=== PATIENT | male | born 1945 ===

== ENCOUNTER 2016-08-24 11:53 | Emergency (ER) | payer MEDICARE, MEDICAID ==
[2016-08-24 13:07] LABS: ALB/GLOB RATIO 1.1 (1.0-2.1); ALKALINE PHOSPHATASE 76 U/L (38-126); ALT/SGPT 23 U/L (21-72); AST/SGOT 27 U/L (17-59); BILIRUBIN,TOTAL 0.5 mg/dl (0.2-1.3); BLOOD UREA NITROGEN 19 mg/dl (9-20); CALCIUM 9.3 mg/dL (8.4-10.2); CARBON DIOXIDE 33 mmol/L (22-30); CHLORIDE 97 mmol/L (98-107); GFR AFRICAN-AMERICAN > 60; GLUCOSE,RANDOM 125 mg/dL (75-110); SODIUM 141 mmol/l (132-148); TOTAL PROTEIN 7.1 G/DL (6.3-8.2)
[2016-08-24 13:14] LABS: BASO # 0.1 K/uL (0.0-0.2); BASO % 0.7 % (0.0-2.0); EOS # 0.1 K/uL (0.0-0.7); EOS % 0.9 % (0.0-4.0); HEMATOCRIT 39.3 % (35.0-51.0); LYMPH # 1.9 K/uL (1.0-4.3); LYMPH % 24.5 % (20.0-40.0); MEAN CELL VOLUME 96.5 fl (80.0-94.0); MEAN CORPUSCULAR HEMOGLOBIN 31.5 pg (27.0-31.0); MEAN CORPUSCULAR HGB CONC 32.6 g/dL (33.0-37.0); MEAN PLATELET VOLUME 7.7 fl (7.2-11.7); MONO # 0.9 K/uL (0.0-0.8); MONO % 11.6 % (0.0-10.0); NEUT # 4.9 K/uL (1.8-7.0); NEUT % 62.3 % (50.0-75.0); RED CELL DISTRIBUTION WIDTH 14.7 % (11.5-14.5); WHITE BLOOD COUNT 7.8 K/uL (4.8-10.8)
--- NOTE | 2016-08-24 14:25 | RAD ---
HISTORY: CP COMPARISON: Comparison chest 10/27/2012. Comparison also made with the CT scan abdomen pelvis 07/22/2016 which imaged both lung bases. FINDINGS: LUNGS: Left lower lobe opacity may represent atelectasis and or infiltrate. . Exuberant subpleural fatty deposition is again noted. PLEURA: No significant pleural effusion identified, no pneumothorax apparent. CARDIOVASCULAR: Normal. OSSEOUS STRUCTURES: No significant abnormalities. VISUALIZED UPPER ABDOMEN: Normal. OTHER FINDINGS: None. IMPRESSION: Left lower lobe atelectasis and or infiltrate. Subpleural fatty deposition
--- NOTE | 2016-08-24 14:55 | ED PDOC ---
HPI: General Adult Time Seen by Provider: 08/24/16 12:10 Chief Complaint (Nursing): Chest Pain Chief Complaint (Provider): chest pain History Per: Patient History/Exam Limitations: no limitations Additional Complaint(s): 71yo male sent by his pain management doctor for chest pain and back pain. He denies nausea, vomit, diarrhea. States Hx of chronic back pain however this pain is different. +CAD w/ 2x stents and 3x MIs per patient. Cardiology: Alex PMD: David Against Medical Advice - AMA Patient Left Against Medical Advice: The patient declines admission to the hospital and wishes to leave the Emergency Department. This action is against my medical advice. This decision was made with informed refusal. The patient was told that admission to the hospital is necessary. Explanation of the reasons why were discussed. The risks of leaving were explained to the patient and include, but are not limited to, worsening of known or currently unknown conditions, permanent disability and from undiagnosed or untreated conditions. The patient has the capacity to make this informed decision and understands my explanation of the current medical problem and risks of leaving. The patient voluntarily accepts these risks and signed an AMA form documenting our conversation. The patient was given the opportunity to ask questions and reconsider. The patient was encouraged to return to the Emergency Department at any time for further care. Past Medical History Reviewed: Historical Data, Nursing Documentation, Vital Signs Vital Signs: Last Vital Signs Temp Pulse 105 H 08/24/16 15:36 Resp 16 08/24/16 15:06 BP 129/79 08/24/16 15:06 Pulse Ox 99 08/24/16 15:36 - Medical History PMH: CAD (with 2x stents and 3x MIs per patient) - Surgical History Surgical History: Coronary Stent (2x) - Family History Family History: States: Unknown Family Hx - Allergies Allergies/Adverse Reactions: Allergies Allergy/AdvReac Type Severity Reaction Status Date / Time No Known Allergies Allergy Verified 08/24/16 12:18 Review of Systems ROS Statement: Except As Marked, All Systems Reviewed And Found Negative Cardiovascular: Positive for: Chest Pain Gastrointestinal: Negative for: Nausea, Vomiting Musculoskeletal: Positive for: Back Pain Physical Exam - Reviewed Nursing Documentation Reviewed: Yes Vital Signs Reviewed: Yes - Physical Exam Appears: Positive for: Well, Non-toxic, No Acute Distress Head Exam: Positive for: ATRAUMATIC, NORMAL INSPECTION, NORMOCEPHALIC Skin: Positive for: Warm, Dry Eye Exam: Positive for: EOMI, PERRL Cardiovascular/Chest: Positive for: Regular Rate, Rhythm Respiratory: Positive for: Normal Breath Sounds. Negative for: Rales, Rhonchi, Wheezing Gastrointestinal/Abdominal: Positive for: Normal Exam, Soft. Negative for: Tenderness Extremity: Positive for: Normal ROM Neurologic/Psych: Positive for: Alert, Oriented (x3) - Laboratory Results Result Diagrams: 08/24/16 12:52 08/24/16 12:52 - ECG ECG: Positive for: Interpreted By Me, Viewed By Me ECG Rhythm: Positive for: Sinus Tachycardia, Nonspecific Changes Rate: 105 O2 Sat by Pulse Oximetry: 99 Pulse Ox Interpretation: Normal - Radiology X-Ray: Read By Radiologist (CXR) X-Ray Interpretation: Other (Left lower lobe atelectasis and or infiltrate. Subpleural fatty deposit) Medical Decision Making Medical Decision Making: Labs reviewed and are unremarkable. Troponin negative. CXR read as infiltrate vs atelectasis however patient denies fever malaise or coughing. Bloodwork and results were explained. Patient was advised to stay in the hospital for observation given history and symptoms. However he wants to leave against medical advice to go to his PMD at [facility]. We offered transfer at patient's request however patient also refuses. Risks of leaving AMA were explained. Family states patient understands Romansh well. Disposition - Clinical Impression Clinical Impression: Chest pain, Left against medical advice - Disposition Disposition: Against Medical Advice Disposition Time: 14:35 Condition: FAIR Additional Instructions: See your hand assembler or primary doctor as soon as possible for further testing. Return to ER anytime for completion of treatment. Continue all medications as prior directed. Consulte a faye cardilogo o mdico de cabecera lo antes posible para realizar m s pruebas. Regrese a ER en cualquier momento para completar el tratamiento. Contine con todos los medicamentos segn lo indicado anteriormente. Instructions: Chest Pain (ED), Against Medical Advice (ED) Print Language: CITIZ[place] Additional Comments - Additional Comments Additional Comments: Scribe Attestation: Documented by Naga Galvez, acting as a scribe for Milad Lewis DO. Provider Scribe Attestation: All medical record entries made by the Scribe were at my direction and personally dictated by me. I have reviewed the chart and agree that the record accurately reflects my personal performance of the history, physical exam, medical decision making, and the department course for this patient. I have also personally directed, reviewed, and agree with the discharge instructions and disposition.
[2016-08-24 15:08] VITALS: BP 129/79; RESP 16
[2016-08-24 15:10] VITALS: O2SAT 99
[2016-08-24 15:36] VITALS: PULSE 105
--- NOTE | 2016-08-24 19:38 | CARD ---
APPROVED REPORT EKG Measurement Heart [id number] <Conclusion> Sinus tachycardia Possible inferior-posterior infarct, age undetermined Abnormal ECG baseline artefact
== END 2016-08-24 15:37 | disposition left against medical advice (07) ==
LOC: H.ER 11:53
DX: R07.9 Chest pain, unspecified (principal); Z53.20 Procedure and treatment not carried out because of patient's decision for unspecified reasons
CPT/HCPCS: 71010; 80053; 84484; 85025; 93005; 96374; 99285; J2270